=== PATIENT | female | born 1990 | race Caucasian/White ===

== ENCOUNTER 2018-05-28 12:20 | Emergency (ER) | payer OTHER ==
[~2018-05-28] VITALS: Ht 170.2 cm; Wt 57.6 kg
--- NOTE | 2018-05-28 13:54 | PHYS DOC ---
Past History Past Medical History: No Pertinent History Past Surgical History: Smoking: Non-smoker Alcohol Use: None Drug Use: None Adult General Chief Complaint Chief Complaint: ABDOMINAL PAIN IN HPI HPI Patient is a 28 year old female who presents with complaining of lower abdominal cramping pain during . Patient is with LMP of May 11, 2018 and states she had spotting one week ago and had positive home and was seen at [facility] and had positive urine test with hCG quantitative and OB ultrasound with repeat hCG [address] [facility]. Patient states the spotting was stopped but she had cramping lower abdominal pain for the last 5 days and this morning had increasing pain since 10 AM and called [facility] for following up for her test results but nobody responded to her and decided to come here. Patient states she has O+ blood type and denies fever and chills, diarrhea and constipation, urinary symptom. Patient states she had a normal menstruation that started in April 12 and finished after 7 days but her last vaginal bleeding in May 11 last only for 5 days. Review of Systems Review of Systems Constitutional: Denies fever or chills [] Eyes: Denies change in visual acuity, redness, or eye pain [] HENT: Denies nasal congestion or sore throat [] Respiratory: Denies cough or shortness of breath [] Cardiovascular: No additional information not addressed in HPI [] GI: Reports abdominal pain, denies nausea, vomiting, bloody stools or diarrhea [ ] : Denies dysuria or hematuria [] Musculoskeletal: Denies back pain or joint pain [] Integument: Denies rash or skin lesions [] Neurologic: Denies headache, focal weakness or sensory changes [] Endocrine: Denies polyuria or polydipsia [] All other systems were reviewed and found to be within normal limits, except as documented in this note. Allergies Allergies Allergies Coded Allergies Type Severity Reaction Last Updated Verified No Known Drug Allergies 05/28/18 No Physical Exam Physical Exam Constitutional: Well developed, well nourished, mild distress, non-toxic appearance. [] HENT: Normocephalic, atraumatic Eyes: PERRLA, EOMI, conjunctiva normal, no discharge. [] Neck: Normal range of motion, no tenderness, supple, no stridor. [] Cardiovascular:Heart rate regular rhythm, no murmur [] Lungs & Thorax: Bilateral breath sounds clear to auscultation [] Abdomen: Bowel sounds normal, soft, suprapubic guarding, no masses, no pulsatile masses. Vaginal exam with present of section chief showed no vaginal bleeding, right adnexal fullness with tenderness. Skin: Warm, dry, no erythema, no rash. [] Back: No tenderness, no CVA tenderness. [] Extremities: No tenderness, no cyanosis, no clubbing, ROM intact, no edema. [] Neurologic: Alert and oriented X 3, normal motor function, normal sensory function, no focal deficits noted. [] Psychologic: Affect normal, judgement normal, mood normal. [] Current Patient Data Vital Signs Vital Signs Date Time Temp Pulse Resp B/P (MAP) Pulse Ox O2 Delivery O2 Flow Rate FiO2 05/28/18 13:03 66 18 131/63 (85) 100 Room Air 05/28/18 12:30 98.3 EKG EKG [] Radiology/Procedures Radiology/Procedures [address] [address] IMAGING REPORT Signed PATIENT: GERALDO CABALLERO ACCOUNT: [id number] : 1990 LOCATION: ER AGE: 28 SEX: F EXAM STATUS: REG ER ORD. PHYSICIAN: NAVID BRITTON MD REASON: cramping abdominal pain PROCEDURE: OB <14 WKS W/TV Early OB ultrasound History: Beta hCG level 1288. Cramping and abdominal pain. Comparison: None. Technique: Transabdominal imaging was performed for initial evaluation of the pelvis. Endovaginal imaging was performed to evaluate optimally the lower uterine segment and to increase sensitivity for detection of intrauterine . Findings: Transabdominal imaging: Uterus measures 9.8 cm in length. No intrauterine is identified. Left ovary measures 2.1 x 2.7 x 4.0 cm. Right ovary is not visualized. Left ovary demonstrates normal vascular flow upon Doppler interrogation and is without evidence of torsion. Endovaginal imaging: Uterus measures 9.0 cm in length. Endometrial thickness is 10 mm. No intrauterine is identified. Left ovary measures 1.4 x 2.9 x 2.3 cm. Right ovary is not seen. Moderate amount of, compatible with hemorrhage product. There is also evidence of a small amount of hemorrhage product adjacent to the liver. In the right adnexa, there is a complex cystic and solid appearing mass which is measured at 6.7 x 4.4 x 6.4 cm. Constellation of findings are worrisome for ruptured ectopic . Impression: 1. No intrauterine is identified. Hemorrhage is seen in the pelvis as well as small amount adjacent to the liver. There is a complex mass involving the right adnexa, uncertain if this represents the actual ectopic versus organized hemorrhage product. Constellation of findings are compatible with a ruptured ectopic . 2. Results were called to emergency department staff, Dr. Britton, at 1528 hours. Electronically signed by: Lalo Estrella MD (05/28/2018 3:28 PM) [place] [id number] DICTATED AND SIGNED BY: LALO ESTRELLA MD DATE: 05/28/18 1523 CC: NAVID BRITTON MD; PCP,NO ~ Course & Med Decision Making Course & Med Decision Making Pertinent Labs and Imaging studies reviewed. (See chart for details) Evaluation of patient in ER showed 28-year-old male patient with complaining of vaginal bleeding for several days and cramping abdomen that getting worse today. Patient had stable vital signs and did not want to have pain medication while she was in ER. Patient had ruptured right ectopic with moderate amount of blood in the abdomen. Patient requesting [facility]. On-call CUSTOMER CONTACT REPRESENTATIVE at [facility] Dr. Montgomery was contacted at 1625 and edited transferred to [facility]. Patient had O+ blood type. Patient treated with IV fluid and 1 dose of 2 mg of morphine and felt better. Patient had stable vital signs at time of transfer to [facility] at 1513. Dragon Disclaimer Dragon Disclaimer This electronic medical record was generated, in whole or in part, using a voice recognition dictation system. Departure Departure: Impression: Primary Impression: Ruptured ectopic Disposition: XFER OTHER ([facility]) Condition: GUARDED Referrals: PCP,NO (PCP) Critical Care Time Critical care time was 60 minutes exclusive of procedures. NAVID BRITTON MD May 28, 2018 13:54
[2018-05-28 14:06] LABS: AMORPHOUS SEDIMENT,UR PRESENT /HPF; BACTERIA,URINE FEW /HPF (0-FEW); BILIRUBIN,URINE NEG (NEG); CLARITY,URINE HAZY; COLOR,URINE STRAW; GLUCOSE,URINE NEG (NEG); NITRITE,URINE NEG (NEG); RBC,URINE 0 /HPF (0-2); SQUAMOUS EPITHELIAL CELL,UR FEW /LPF; UROBILINOGEN,URINE 0.2 mg/dL (0.2 mg/dL); WBC,URINE RARE /HPF (0-4)
--- NOTE | 2018-05-28 15:32 | RAD ---
Early OB ultrasound History: Beta hCG level 1288. Cramping and abdominal pain. Comparison: None. Technique: Transabdominal imaging was performed for initial evaluation of the pelvis. Endovaginal imaging was performed to evaluate optimally the lower uterine segment and to increase sensitivity for detection of intrauterine . Findings: Transabdominal imaging: Uterus measures 9.8 cm in length. No intrauterine is identified. Left ovary measures 2.1 x 2.7 x 4.0 cm. Right ovary is not visualized. Left ovary demonstrates normal vascular flow upon Doppler interrogation and is without evidence of torsion. Endovaginal imaging: Uterus measures 9.0 cm in length. Endometrial thickness is 10 mm. No intrauterine is identified. Left ovary measures 1.4 x 2.9 x 2.3 cm. Right ovary is not seen. Moderate amount of, compatible with hemorrhage product. There is also evidence of a small amount of hemorrhage product adjacent to the liver. In the right adnexa, there is a complex cystic and solid appearing mass which is measured at 6.7 x 4.4 x 6.4 cm. Constellation of findings are worrisome for ruptured ectopic . Impression: 1. No intrauterine is identified. Hemorrhage is seen in the pelvis as well as small amount adjacent to the liver. There is a complex mass involving the right adnexa, uncertain if this represents the actual ectopic versus organized hemorrhage product. Constellation of findings are compatible with a ruptured ectopic . 2. Results were called to emergency department staff, Dr. Gooden, at 1528 hours. Electronically signed by: Lalo Garrett MD (05/28/2018 3:28 PM) [place] [id number]
[2018-05-28 15:35] LABS: BASO % 0 % (0-3); EOS # 0.1 x10^3/uL (0.0-0.7); EOS % 1 % (0-3); HEMATOCRIT 36.3 % (36.0-47.0); HEMOGLOBIN 11.9 g/dL (12.0-15.5); LYMPH % 11 % (24-48); MEAN CORPUSCULAR HEMOGLOBIN 27 pg (25-35); MEAN CORPUSCULAR HGB CONC 33 g/dL (31-37); MEAN CORPUSCULAR VOLUME 84 fL (79-100); MONO # 0.4 x10^3/uL (0.0-1.1); MONO % 4 % (0-9); NEUT % 84 % (31-73); PLATELET COUNT 153 x10^3/uL (140-400); RED BLOOD COUNT 4.35 x10^6/uL (3.50-5.40); RED CELL DISTRIBUTION WIDTH 13.9 % (11.5-14.5); WHITE BLOOD COUNT 9.5 x10^3/uL (4.0-11.0)
[2018-05-28 16:19] VITALS: BP 125/75
[2018-05-28] MEDS ORDERED: IV NORMAL SALINE 1,000ML 1,000 ML IV ONE (16:30)
[2018-05-28] MEDS ORDERED: ONDANSETRON PF 4 MG/2 ML VIAL. IV ONE (16:45)
[2018-05-28] MEDS ORDERED: MORPHINE SULFATE 2 MG/ML DISP.SYRIN. IV ONE (16:45)
== END 2018-05-28 17:13 | disposition short-term general hospital (02) ==
LOC: ER 12:20
DX: O00.80 Other ectopic pregnancy without intrauterine pregnancy (principal)
CPT/HCPCS: 36415; 76801; 76817; 81001; 84702; 85025; 87086; 96374; 96375; 99285; J2270; J2405; J7030

== ENCOUNTER 2018-08-18 07:32 | Emergency (ER) | payer OTHER ==
[~2018-08-18] VITALS: Ht 170.2 cm; Wt 57.2 kg
[2018-08-18 07:38] VITALS: BP 137/88
[2018-08-18] MEDS ORDERED: IBUP600T16 PO (07:56)
--- NOTE | 2018-08-18 07:57 | PHYS DOC ---
Past History Past Medical History: No Pertinent History Past Surgical History: , Other Smoking: Non-smoker Alcohol Use: None Drug Use: None Adult General Chief Complaint Chief Complaint: CHEST PAIN HPI HPI Patient is a 28 year old female who presents with including of intermittent episodes of left-sided chest pain for the last 2-3 days. Patient states the pain is aching pain and last for a few minutes and repeated several times a day without radiation, shortness of breath, palpitation, fever and chills, cough and congestion, history of injury. She does not have cardiac risk factor. Review of Systems Review of Systems Constitutional: Denies fever or chills [] Eyes: Denies change in visual acuity, redness, or eye pain [] HENT: Denies nasal congestion or sore throat [] Respiratory: Denies cough or shortness of breath [] Cardiovascular: No additional information not addressed in HPI [] GI: Denies abdominal pain, nausea, vomiting, bloody stools or diarrhea [] : Denies dysuria or hematuria [] Musculoskeletal: Denies back pain or joint pain [] Integument: Denies rash or skin lesions [] Neurologic: Denies headache, focal weakness or sensory changes [] Endocrine: Denies polyuria or polydipsia [] All other systems were reviewed and found to be within normal limits, except as documented in this note. Allergies Allergies Allergies Coded Allergies Type Severity Reaction Last Updated Verified No Known Drug Allergies 08/18/18 No Physical Exam Physical Exam Constitutional: Well developed, well nourished, no acute distress, non-toxic appearance. [] HENT: Normocephalic, atraumatic, bilateral external ears normal, oropharynx moist, no oral exudates, nose normal. [] Eyes: PERRLA, EOMI, conjunctiva normal, no discharge. [] Neck: Normal range of motion, no tenderness, supple, no stridor. [] Cardiovascular:Heart rate regular rhythm, no murmur [] Lungs & Thorax: Bilateral breath sounds clear to auscultation [] Abdomen: Bowel sounds normal, soft, no tenderness, no masses, no pulsatile masses. [] Skin: Warm, dry, no erythema, no rash. [] Back: No tenderness, no CVA tenderness. [] Extremities: No tenderness, no cyanosis, no clubbing, ROM intact, no edema. [] Neurologic: Alert and oriented X 3, normal motor function, normal sensory function, no focal deficits noted. [] Psychologic: Affect normal, judgement normal, mood normal. [] Current Patient Data Vital Signs Vital Signs Date Time Temp Pulse Resp B/P (MAP) Pulse Ox O2 Delivery O2 Flow Rate FiO2 08/18/18 07:38 98.3 75 18 100 Room Air EKG EKG EKG interpreted by me. EKG at 0739 showed normal sinus rhythm at rate of 69, normal interval and axis, no acute distress and T wave abnormality,[] Radiology/Procedures Radiology/Procedures [] Course & Med Decision Making Course & Med Decision Making Evaluation of patient in ER showed 28-year-old female patient with complaining of intermittent episodes of left-sided chest pain with unremarkable EKG and labs without having cardiac risk factor. Patient informed about muscle pain and is to take anti-inflammatory medication. Dragon Disclaimer Dragon Disclaimer This electronic medical record was generated, in whole or in part, using a voice recognition dictation system. Departure Departure: Impression: Primary Impression: Non-cardiac chest pain Disposition: HOME, SELF-CARE (at 0754) Condition: STABLE Referrals: PCP,NO (PCP) Patient Instructions: Musculoskeletal Pain Additional Instructions: Drink plenty of liquids Follow-up with your primary care physician in 3-5 days Return to ER if not getting better Scripts Ibuprofen (IBUPROFEN) 600 Mg Tablet 600 MG PO TID for pain, #20 TAB Prov: NAVID BRITTON MD 08/18/18 ANVID BRITTON MD Aug 18, 2018 07:57
--- NOTE | 2018-08-18 08:10 | EKG ---
[address] [address] Test Date: 2018-08-18 Test Time: 07:39:59 Pat Name: GERALDO CABLALERO Department: Room: Gender: F Store Specialist: MARCOS : 1990 Requested By: NAVID BRITTON Order Number: [id number] Reading MD: Carlos Alberto Kramer MD Measurements Intervals [place] Rate: 69 P: 63 CA: 164 QRS: 43 QRSD: 90 T: 27 QT: 354 QTc: 381 Interpretive Statements SINUS RHYTHM Electronically Signed On 08-18-2018 10:12:15 DETENTION SERGEANT by Carlos Alberto Kramer MD
== END 2018-08-18 08:00 | disposition home or self-care (01) ==
LOC: ER 07:32
DX: R07.89 Other chest pain (principal)
CPT/HCPCS: 93005; 99283